=== PATIENT | male | born 1980 | race Caucasian/White ===

== ENCOUNTER 2025-04-09 19:17 | Emergency (ER) | payer OTHER ==
[2025-04-09] MEDS: diphenhydrAMINE 50 MG/ML SDV IVPUSH ONE (19:33)
[2025-04-09] MEDS: methylPREDNISolone Sodium Succinate 125 MG/2 ML SDV IVPUSH ONE (19:33)
== END 2025-04-09 20:55 | disposition home or self-care (01) ==
LOC: JP.ED 19:17
DX: T63.441A Toxic effect of venom of bees, accidental (unintentional), initial encounter (principal)
CPT/HCPCS: 96374; 96375; 99282; J1200; J2919; 99283